=== PATIENT | female | born 1990 | race Caucasian/White ===

== ENCOUNTER 2024-07-25 14:57 | Inpatient (IN) ==
--- NOTE | 2024-07-25 15:11 | Emergency Department Note ---
Impression & Plan Anxiety and depression ED Provider Note Provider: Joseph Yee MD CHIEF COMPLAINT: Anxiety and stress HISTORY OF PRESENT ILLNESS: Patient is a 34-year-old female presenting here today stating she has had a really hard time recently with her mental health and significant anxiety. Having episodes where she is having anxiety attacks and cannot stop crying. Has attempted to see outpatient services but has been able to get in with any to date. Patient denies to me any suicidal thoughts or homicidal thoughts. Since having a discussion with her PhD advisor on Saturday has been having continuous anxiety and crying episodes. Not sleeping much. Racing thoughts. Has had episodes of anxiety and depression in the past several years ago particular when her grandmother . Is on several maintenance antidepressant/anxiety medications but these are not helping. No drug or alcohol issues reported. Has thought of not wanting to be alive but no thoughts of wanting to kill herself or harm her self. No homicidal thoughts or hallucinations reported. Patient has been eating and drinking some but she states she feels somewhat tingly and anxious and is crying a lot and occasionally a bit nauseous. Her and her girlfriend have reached out for outpatient resources but limited effect over the last several days to get appointments or follow-up thus came here. Is trying to get a short-term leave from school. 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 EOMI. NECK: Trachea midline. Supple. ENT: Mucous membranes pink and moist. Little bit of a red and raw nose from crying and clear rhinorrhea. LUNGS: Airway patent. No retractions. Breath sounds clear with good air entry bilaterally. HEART: Regular rate and rhythm. No chest wall tenderness ABDOMEN: Soft and non-tender, without guarding or rebound. SKIN: Acyanotic, warm, dry, without rashes EXTREMITIES: Without swelling, tenderness or deformity NEUROLOGICAL: No focal deficits moving all extremities. No aphasia. No facial droop or slurred speech. Ambulatory. Psych: Anxious and crying actively. Not responding to external stimuli. Reports severe anxiety as well as mild depression but no suicidal ideation. Reports hopelessness. No HI reported. Patient's laboratory studies and imaging reviewed. Differential includes Mood disorder, infection, hypoglycemia, electrolyte abnormalities, cardiac sources, intracerebral event, toxicologic, trauma, neurologic, as well as other pathologies. IMPRESSION/MEDICAL DECISION MAKING: Patient is quite anxious and tearful and crying. Has been under additional school stress recently. No drug or alcohol issues. Crying and tearful racing thoughts but no suicidal attempts or homicidal ideation although is hopeless and has had some thoughts of not wanting to be alive. Will give a bit of Ativan to help with symptoms. Seen with case management here. Basic blood work obtained. Is on some outpatient antidepressant/anxiety medications but has not had a current therapist or counselor. No inpatient mental health history reported. Her and her girlfriend are here to try to seek help and help her control her anxiety and depression so she can be functional. Blood work here without significant anemia or leukocytosis. No significant electrolyte abnormality, renal dysfunction, or signs of thyroid dysfunction at this time. UDS consistent with her antidepressant/anxiety medication usage with otherwise negative toxicology study. Case management formal evaluation discussed the patient options. No involuntary criteria but discussed options if she wanted referral to [facility] or possible inpatient treatment given the severity of her symptoms. Evaluated by [facility] for possible inpatient voluntary treatment and care. Accepted there on a 201 for further care. DIAGNOSIS: Anxiety and depression DISPOSITION: To [facility] for further inpatient psychiatric care. Past Med/Surg History Problem List (Updated 07/25/24 @ 18:19 by Joseph Yee M.D.) Anxiety and depression (Acute) Social History Smoking Status: Never smoker Feels Safe at Home: Yes Gender Identity: Female Allergies Allergies Allergy/AdvReac Type Severity Reaction Status Date / Time cinnamon Allergy Unknown Verified 07/25/24 15:34 NSAIDS (Non-Steroidal Allergy Unknown Verified 07/25/24 15:34 Anti-Inflamma Results & Data (ED) Vital Signs Vital Signs - 24 hr 07/25/24 15:04 07/25/24 18:59 Temperature 36.4 C L Temperature Source Temporal Artery Scan Pulse Rate 111 H 88 Respiratory Rate 18 18 Respiratory Effort / Characteristics Non-Labored Spontaneous Respiratory Depth Normal Respiratory Pattern Regular Blood Pressure 136/87 128/79 Blood Pressure Mean 103 Pulse Oximetry 100 97 Oxygen Delivery Method Room Air Room Air Sepsis Recent Fever Within 48 Hours No Sepsis New/Unexplained Change in Mental Status N/A Sepsis Action Taken by Nursing No Action Required Laboratory Data 07/25/24 15:47 07/25/24 15:47 Lab Results 07/25/24 07/25/24 07/25/24 Range/Units 15:30 15:39 15:47 WBC 7.63 (4.8-10.8) K/ul RBC 4.58 (4.20-5.40) M/uL Hgb 13.7 (12.0-16.0) g/dl Hct 40.2 (37.0-47.0) % MCV 87.8 (80.0-100.0) fL MCH 29.9 (25.0-34.0) pg MCHC 34.1 (32.0-36.0) g/dL RDW Std Deviation 39.0 (36.4-46.3) fL RDW Coeff of Michi 12.1 (11.5-14.5) % Plt Count 484 H (130-400) K/uL MPV 9.5 (9.4-12.4) fL Immature Gran % (Auto) 0.4 % Neut % (Auto) 59.0 % Lymph % (Auto) 30.5 % [place] % (Auto) 8.4 % Eos % (Auto) 1.0 % Baso % (Auto) 0.7 % Neut # (Auto) 4.50 (1.40-6.50) K/uL Lymph # (Auto) 2.33 (1.20-3.40) K/uL [place] # (Auto) 0.64 H (0.11-0.59) K/uL Eos # (Auto) 0.08 (0.00-0.50) K/uL Baso # (Auto) 0.05 (0.00-0.20) K/uL Immature Gran # (Auto) 0.03 (0.01-0.20) K/uL Sodium 136 (136-145) mmol/L Potassium 4.0 (3.5-5.1) mmol/L Chloride 104 (98-107) mmol/L Carbon Dioxide 23 (21-32) mmol/L Anion Gap 9 (3-11) BUN 11 (6-23) mg/dl Creatinine 0.87 (0.6-1.2) mg/dl Est Cr Clr Drug Dosing 101.8 ml/min eGFR 90.73 BUN/Creatinine Ratio 12.6 (10-20) Glucose 89 (70-99(Fasting)) mg/dl Calcium 9.3 (8.6-10.3) mg/dl Total Bilirubin 0.4 (0.2-1.0) mg/dl AST 20 (13-39) U/L ALT 17 (7-52) U/L Alkaline Phosphatase 60 (34-104) U/L Total Protein 7.8 (6.0-8.3) gm/dl Albumin 4.7 (3.4-5.0) gm/dl Globulin 3.1 (2.5-4.0) gm/dl Albumin/Globulin Ratio 1.5 (0.9-2) TSH 1.576 (0.300-4.500) uIu/ml HCG, Qual Negative (Negative) Urine Color Yellow Urine Appearance Cloudy A (Clear) Urine pH 5.0 (4.5-7.5) Ur Specific [place] 1.023 (1.000-1.030) Urine Protein Negative (Negative) Urine Glucose (UA) Negative (Negative) Urine Ketones 1+ H (Negative) Urine Blood 2+ H (Negative) Urine Nitrite Negative (Negative) Urine Bilirubin Negative (Negative) Urine Urobilinogen Negative (Negative) Ur Leukocyte Esterase Negative (Negative) Urine WBC (Auto) 6-10 H (0-5) /hpf Urine RBC (Auto) 6-10 H (0-2) /hpf U Hyaline Cast (Auto) 0-2 (0-2) /lpf U Epithel Cells (Auto) 3-5 H (0-2) /hpf Urine Bacteria (Auto) 3+ H (None Seen) Salicylates < 3.0 L (3.0-30) mg/dl Urine Opiates Screen Neg (Neg) Ur Methadone, Qual Neg (Neg) Urine Fentanyl Screen Neg (Neg) Acetaminophen < 3 L (10-30) ug/ml Urine Barbiturates Neg (Neg) Ur Phencyclidine (PCP) Neg (Neg) U Amphetamin/Meth Scrn Neg (Neg) MDMA (Ecstasy) Screen Pos H (Neg) U Benzodiazepines Scrn Neg (Neg) Ur Cocaine Metabolite Neg (Neg) U Marijuana (THC) Screen Neg (Neg) Ethyl Alcohol mg/dL < 10.0 (<10.0) mg/dl SARS-CoV-2, RNA, NAAT NEGATIVE (NEGATIVE) Administered Medications Discontinued Medications Lorazepam (Lorazepam 1 Mg Tab) 1 mg SL NOW STA Stop: 07/25/24 15:20 Last Admin: 07/25/24 15:38 Dose: 1 mg Documented By: ARS Discharge Plan Visit Data Chief Complaint: Mental Health Evaluation Stated Complaint: SEVERE MENTAL DISTRESS & RECOMMENDATION ED Provider: Joseph Yee Discharge Problem: Anxiety and depression Patient Disposition: Admitted As Inpatient Discharge Instructions Interventions: ED Discharge Assessment Last Done: 07/25/24 18:59
[2024-07-25] MEDS: LORazepam 1 MG TAB SL STA (15:38)
[2024-07-25 16:03] LABS: Appearance Urine Cloudy (Clear); Bacteria Urine Automated 3+ (None Seen); Bilirubin Urine Negative (Negative); Blood Urine 2+ (Negative); Cast Urine Automated 0-2 /lpf (0-2); Color Urine Yellow; Glucose Urine UA Negative (Negative); Ketones Urine 1+ (Negative); Leukocyte Esterase Urine Negative (Negative); Nitrite Urine Negative (Negative); Protein Urine Negative (Negative); Specific Gravity Urine 1.023 (1.000-1.030); Urobilinogen Urine Negative (Negative)
[2024-07-25 16:10] LABS: Basophils # (auto) 0.05 K/uL (0.00-0.20); Basophils % (auto) 0.7 %; Eosinophils # (auto) 0.08 K/uL (0.00-0.50); Hematocrit (blood only) 40.2 % (37.0-47.0); Hemoglobin 13.7 g/dl (12.0-16.0); Immature Granulocytes # (auto) 0.03 K/uL (0.01-0.20); Immature Granulocytes % (auto) 0.4 %; Lymphocytes # (auto) 2.33 K/uL (1.20-3.40); Lymphocytes % (auto) 30.5 %; Mean Corpuscular Hemoglobin 29.9 pg (25.0-34.0); Mean Corpuscular Hgb Conc 34.1 g/dL (32.0-36.0); Mean Corpuscular Volume 87.8 fL (80.0-100.0); Mean Platelet Volume 9.5 fL (9.4-12.4); Monocytes # (auto) 0.64 K/uL (0.11-0.59); Monocytes % (auto) 8.4 %; Platelet Count 484 K/uL (130-400); RDW Coefficient of Variation 12.1 % (11.5-14.5); Red Blood Count 4.58 M/uL (4.20-5.40); White Blood Count 7.63 K/ul (4.8-10.8)
[2024-07-25 16:25] LABS: Pregnancy Test, Serum Negative (Negative)
[2024-07-25 16:28] LABS: Albumin Globulin Ratio 1.5 (0.9-2); Albumin Level 4.7 gm/dl (3.4-5.0); BUN Creatinine Ratio 12.6 (10-20); Bilirubin,Total 0.4 mg/dl (0.2-1.0); Calcium 9.3 mg/dl (8.6-10.3); Creatinine Clr Calc Pharmacy 101.8 ml/min; Globulin 3.1 gm/dl (2.5-4.0); Total Protein 7.8 gm/dl (6.0-8.3)
[2024-07-25 16:37] LABS: Amphetamines+Metham, Urine Neg (Neg); Barbiturates, Urine Neg (Neg); Benzodiazepine, Urine Neg (Neg); Cocaine, Urine Neg (Neg); Fentanyl, Urine Neg (Neg); MDMA (Ecstacy), Urine Pos (Neg); Marijuana, Urine Neg (Neg); Methadone, Urine Neg (Neg); Opiate, Urine Neg (Neg); Phencyclidine, Urine Neg (Neg)
[2024-07-25 16:37] LABS: Acetaminophen < 3 ug/ml (10-30); Salicylate < 3.0 mg/dl (3.0-30)
[2024-07-25 16:44] LABS: Thyroid Stimulating Hormone 1.576 uIu/ml (0.300-4.500)
[2024-07-25] MEDS ORDERED: hydrOXYzine HCl 25 MG TAB PO PRN (19:15)
[2024-07-25] MEDS ORDERED: SODIUM CHLORIDE 0.65% NA SOLN 45 ML (OCEAN) PRN (19:15)
[2024-07-25] MEDS ORDERED: ALUMINUM/MAGNESIUM SUSP 30 ML UDC PO PRN (19:15)
[2024-07-25] MEDS ORDERED: ACETAMINOPHEN 325 MG TAB PO PRN (19:15)
[2024-07-26] MEDS: VENLAFAXINE HCL XR 75 MG CAPXR PO SCH (09:01)
[2024-07-26] MEDS: buPROPion XL 300 MG TABCR PO SCH (09:02)
[2024-07-26] MEDS: LORazepam 0.5 MG TAB PO PRN (10:13)
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
[2024-07-26] MEDS: PROPRANOLOL HCL 10 MG TAB PO SCH (15:32)
[2024-07-26] MEDS: hydrOXYzine HCl 25 MG TAB PO PRN (21:46)
[2024-07-27 08:58] LABS: Estimated Average Glucose 100 mg/dl; Hemoglobin A1C 5.1 % (4.5-5.6)
[2024-07-27 09:13] LABS: Chol HDL Ratio 3.1 (0-5)
[2024-07-27] MEDS: VENLAFAXINE HCL XR 150 MG CAPXR PO SCH (09:26)
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
[2024-07-28] MEDS: CHOLECALCIFEROL 125 MCG (5,000 UNITS) TAB PO SCH (09:11)
--- NOTE | 2024-07-28 12:30 | Psychiatric Progress Note ---
Date of Service July 28, 2024 Impression / Recommendations Impression LORI APPLE is a 34-year-old F who currently lives with roommate, has a history of depression, anxiety, ADH, and was admitted on 07/25/24 19:15 on a 201 voluntary commitment for suicidal ideation. Presentation consistent with MDD, recurrent, moderate-severe and MABEL. Patient presents h/o recurrent depression with limited medication changes and worsening symptoms in the context of academic/roommate stressors and social isolation. Presents generalized worries regarding fear of failure and inadequacy. Presenting passive suicidal ideations and poor self esteem. A: Continues to present difficulties with sleep maintenance. Presents improved mood and outlook. Continues to ruminate about future worries and negative judgments about self. Was counseled about cognitive behavioral therapy and benefits. Reports a history of performance anxiety with physical symptoms of palpitations and tension. Labs reviewed: B12, hemoglobin A1c, lipid panel unremarkable and vitamin D insufficient at 20.5. We will optimize sleep regimen and start vitamin supplementation. Patient educated about sleep hygiene. Social work to refer to intensive outpatient program. Overall, I spent a total of 45 minutes with this case including review of chart records, nursing report, review of lab work, direct evaluation of the patient at bedside, counseling the patient, multidisciplinary team meeting, orders, and documentation in the electronic health record. (1) MDD (major depressive disorder), recurrent episode, moderate: (2) Generalized anxiety disorder: (3) Difficulty concentrating: (4) Other social stressor: (5) Has difficulties with academic performance: (6) Vitamin D insufficiency: Plan 07/28/2024: Start vitamin D 125 mcg daily Schedule lorazepam 0.5 mg at bedtime and discontinue as needed lorazepam 07/27/2024: Continue medications and treatment plan 07/26/24: The patient was admitted to the [facility] ([facility] mental health unit) on q15 min checks (behavioral with suicide precautions) for safety. The patient will participate in group, recreational, and milieu therapies and will be offered additional individual and family sessions as clinically appropriate. -Start Propranolol 10mg TID -Increase home Effexor XR to 150mg QD -Continue home Bupropion XR 300mg QD -Lorazepam 0.5mg BID PRN for anxiety, Hydroxyzine PRN for breakthrough anxiety Inventory Assets Strengths: independent, support seeking Needs: improved self esteem, assertiveness Suicide Risk Level Suicide Risk Level: Moderate (q15 min suicide checks) Risk Factors Assessment Male: No : Yes Do You Have Access To A Gun?: No (n/a) Health Problems: No Mental Health Diagnoses: Yes Substance Use Disorders: No Previous Attempt: No Family History of Suicide: No Previous Psychiatric Hospitalization: No Hopelessness: Yes Protective Factors Assessment Church Beliefs: No : No Responsible for Young Children: No Employed: No Stable Relationships: Yes Supportive Family: Yes Good Rapport with Provider: Yes Absence of Any Risk Factors Above: No Interval History Identifying Information LORI APPLE is a 34-year-old F who currently lives with roommate, has a history of depression, anxiety, ADH, and was admitted on 07/25/24 19:15 on a 201 volun tary commitment for suicidal ideation. Chief Complaint Depression Review of Systems Sleep Information Total Hours of Sleep: 7 Meal Information Percent Meal Consumed - Breakfast: 100 Percent Meal Consumed - Lunch: 100 Percent Meal Consumed - Dinner: 90 Subjective Subjective Patient was seen & assessed and interval progress reviewed with treatment team nursing and social work Patient reported poor sleep overnight. Said she took a nap yesterday afternoon. Multiple awakenings throughout the night. Denies having crying spells or physical anxiety. Complains of racing thoughts involving future worries and this often leads to judgments about herself. Endorses poor concentration having difficulty in conversations and reading. Reports having regular performance anxiety in the community. Denies active suicidal ideation however endorses passive thoughts. No other concerns mentioned. Physical Exam Mental Examination Appearance: Well Groomed Eye Contact: Maintains Eye Contact Motor Behavior: Unremarkable Speech: Soft Mood: Anxious Affect: Constricted Thought Process: Intact and Linear Thought Content: Intact Hallucinations: None Insight: Poor (to limited) Judgement: Fair (to limited) Vital Signs (Past 24 Hours) Last Vital Signs Temp 36.3 C L 07/28/24 06:21 Pulse 67 07/28/24 09:05 Resp 16 07/28/24 06:21 BP 109/78 07/28/24 09:05 Pulse Ox 97 07/27/24 20:06 O2 Del Method Room Air 07/27/24 20:06 Results & Data ([facility]) Current Inpatient Medications Current Inpatient Medications: Current Inpatient Medications Acetaminophen (Acetaminophen 325 Mg Tab) 650 mg PO Q4H PRN PRN Reason: Headache or Minor Fever Stop: 08/24/24 19:14 Al Hydrox/Mg Hydrox/Simethicone (Aluminum/Magnesium Susp 30 Ml Udc) 30 ml PO Q4H PRN PRN Reason: GI Upset Stop: 08/24/24 19:14 Bupropion HCl (Bupropion Xl 300 Mg Tabcr) 300 mg PO QAM RADHA Stop: 08/25/24 08:59 Last Admin: 07/28/24 09:11 Dose: 300 mg Hydroxyzine HCl (Hydroxyzine Hcl 25 Mg Tab) 50 mg PO HSZ PRN PRN Reason: Insomnia Stop: 08/24/24 19:14 Last Admin: 07/27/24 21:13 Dose: 50 mg Hydroxyzine HCl (Hydroxyzine Hcl 25 Mg Tab) 25 mg PO Q4H PRN PRN Reason: Anxiety Stop: 08/24/24 19:14 Lorazepam (Lorazepam 0.5 Mg Tab) 0.5 mg PO HS RADHA Stop: 08/27/24 21:59 Magnesium Hydroxide (Magnesium Hydroxide Susp 30 Ml Udc) 30 ml PO DAILY PRN PRN Reason: Constipation Stop: 08/24/24 19:14 Propranolol HCl (Propranolol Hcl 10 Mg Tab) 10 mg PO TID RADHA Stop: 08/25/24 15:14 Last Admin: 07/28/24 09:12 Dose: 10 mg Sodium Chloride (Sodium Chloride 0.65% Na Soln 45 Ml ([place])) 1 - 2 sprays NA PRN PRN PRN Reason: Nasal Dryness/Congestion Stop: 08/24/24 19:14 Venlafaxine HCl (Venlafaxine Hcl Xr 150 Mg Capxr) 150 mg PO QAM RADHA Stop: 08/26/24 08:59 Last Admin: 07/28/24 09:12 Dose: 150 mg Vitamin D (Cholecalciferol 125 Mcg (5,000 Units) Tab) 125 mcg PO QAM RADHA Stop: 08/27/24 08:59 Last Admin: 07/28/24 09:11 Dose: 125 mcg Mental Health & Subst Abuse Tx Psychiatrist Time of Appointment with Psychiatrist: n/a Therapist Name of Therapist: [employer] Therapist's Phone Number: Time of Therapist Appointment: n/a Anesthesiology Resident Name of Anesthesiology Resident: n/a Time of Appointment with Anesthesiology Resident: n/a Post Discharge Appointments Primary Care Physician Name Of Family Doctor/PCP: Amanda Bradley PA-C at [facility] Time of Appointment with PCP: n/a Contact Information Discharge Discharge Address: [address] [place] [address] [place] Pined[place] [id number]
[2024-07-28] MEDS: LORazepam 0.5 MG TAB PO SCH (21:18)
[2024-07-29] MEDS ORDERED: PROPRANOLOL HCL 10 MG TAB PO PRN (11:10)
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
[2024-07-29] MEDS: MAGNESIUM HYDROXIDE SUSP 30 ML UDC PO PRN (19:17)
--- NOTE | 2024-07-30 10:58 | Psychiatric Progress Note ---
Date of Service July 30, 2024 Impression / Recommendations Impression LORI APPLE is a 34-year-old F who currently lives with roommate, has a history of depression, anxiety, ADH, and was admitted on 07/25/24 19:15 on a 201 voluntary commitment for suicidal ideation. Presentation consistent with MDD, recurrent, moderate-severe and MABEL. Patient presents h/o recurrent depression with limited medication changes and worsening symptoms in the context of academic/roommate stressors and social isolation. Presents generalized worries regarding fear of failure and inadequacy. Presenting passive suicidal ideations and poor self esteem. A: Patient presents an improved mood with a brighter affect and more reactivity. She presents denial of suicidal ideation and is future oriented. Continues to have sleep maintenance dysfunction. She was counseled about medications and potential future changes. No acute safety concerns presented. No breakthrough anxiety after discontinuation of propranolol. Overall, I spent a total of 35 minutes with this case including review of chart records, nursing report, review of lab work, direct evaluation of the patient at bedside, counseling the patient, multidisciplinary team meeting, orders, and documentation in the electronic health record. (1) MDD (major depressive disorder), recurrent episode, moderate: (2) Generalized anxiety disorder: (3) Difficulty concentrating: (4) Other social stressor: (5) Has difficulties with academic performance: (6) Vitamin D insufficiency: Plan 07/30/2024: Continue medications and treatment plan 07/29/2024: Propranolol to 3 times daily NEEDED 07/28/2024: Start vitamin D 125 mcg daily Schedule lorazepam 0.5 mg at bedtime and discontinue as needed lorazepam 07/27/2024: Continue medications and treatment plan 07/26/24: The patient was admitted to the [facility] ([facility]) on q15 min checks (behavioral with suicide precautions) for safety. The patient will participate in group, recreational, and milieu therapies and will be offered additional individual and family sessions as clinically appropriate. -Start Propranolol 10mg TID -Increase home Effexor XR to 150mg QD -Continue home Bupropion XR 300mg QD -Lorazepam 0.5mg BID PRN for anxiety, Hydroxyzine PRN for breakthrough anxiety Inventory Assets Strengths: independent, support seeking Needs: improved self esteem, assertiveness Suicide Risk Level Suicide Risk Level: Moderate (q15 min suicide checks) Risk Factors Assessment Male: No : Yes Do You Have Access To A Gun?: No (n/a) Health Problems: No Mental Health Diagnoses: Yes Substance Use Disorders: No Previous Attempt: No Family History of Suicide: No Previous Psychiatric Hospitalization: No Hopelessness: Yes Protective Factors Assessment Mormonism Beliefs: No : No Responsible for Young Children: No Employed: No Stable Relationships: Yes Supportive Family: Yes Good Rapport with Provider: Yes Absence of Any Risk Factors Above: No Interval History Identifying Information LORI APPLE is a 34-year-old F who currently lives with roommate, has a history of depression, anxiety, ADH, and was admitted on 07/25/24 19:15 on a 201 voluntary commitment for suicidal ideation. Chief Complaint Depression, Anxiety Review of Systems Sleep Information Total Hours of Sleep: 6.5 Meal Information Percent Meal Consumed - Breakfast: 100 Percent Meal Consumed - Lunch: 100 Percent Meal Consumed - Dinner: 70 Subjective Subjective Patient was seen & assessed and interval progress reviewed with treatment team nursing and social work Patient slept 6.5 hours overnight. Reports some awakenings however able to go back to sleep. Took Vistaril as needed and found it effective. She is more reactive and bright today and is excited to see her family this weekend. She denies having physical symptoms of anxiety however reports in the community has diarrhea and constipation in regards to high anxiety. She denies active or passive SI and reports wanting to live for her family and herself. Physical Exam Mental Examination Appearance: Well Groomed Eye Contact: Maintains Eye Contact Motor Behavior: Unremarkable Speech: Soft Mood: Euthymic and Calm Affect: Constricted (more reactive today) Thought Process: Intact and Linear Thought Content: Intact Hallucinations: None Insight: Fair (to limited) Judgement: Fair (to limited) Vital Signs (Past 24 Hours) Last Vital Signs Temp 36.9 C 07/30/24 06:41 Pulse 94 H 07/30/24 06:42 Resp 16 07/30/24 06:41 BP 93/55 L 07/30/24 06:42 Pulse Ox 97 07/27/24 20:06 O2 Del Method Room Air 07/27/24 20:06 Results & Data ([facility]) Current Inpatient Medications Current Inpatient Medications: Current Inpatient Medications Acetaminophen (Acetaminophen 325 Mg Tab) 650 mg PO Q4H PRN PRN Reason: Headache or Minor Fever Stop: 08/24/24 19:14 Al Hydrox/Mg Hydrox/Simethicone (Aluminum/Magnesium Susp 30 Ml Udc) 30 ml PO Q4H PRN PRN Reason: GI Upset Stop: 08/24/24 19:14 Bupropion HCl (Bupropion Xl 300 Mg Tabcr) 300 mg PO QAM RADHA Stop: 08/25/24 08:59 Last Admin: 07/30/24 09:02 Dose: 300 mg Hydroxyzine HCl (Hydroxyzine Hcl 25 Mg Tab) 50 mg PO HSZ PRN PRN Reason: Insomnia Stop: 08/24/24 19:14 Last Admin: 07/29/24 21:38 Dose: 50 mg Hydroxyzine HCl (Hydroxyzine Hcl 25 Mg Tab) 25 mg PO Q4H PRN PRN Reason: Anxiety Stop: 08/24/24 19:14 Lorazepam (Lorazepam 0.5 Mg Tab) 0.5 mg PO HS RADHA Stop: 08/27/24 21:59 Last Admin: 07/29/24 21:36 Dose: 0.5 mg Magnesium Hydroxide (Magnesium Hydroxide Susp 30 Ml Udc) 30 ml PO DAILY PRN PRN Reason: Constipation Stop: 08/24/24 19:14 Last Admin: 07/29/24 19:17 Dose: 30 ml Propranolol HCl (Propranolol Hcl 10 Mg Tab) 10 mg PO TID PRN PRN Reason: Palpitations Stop: 08/25/24 15:14 Sodium Chloride (Sodium Chloride 0.65% Na Soln 45 Ml ([place])) 1 - 2 sprays NA PRN PRN PRN Reason: Nasal Dryness/Congestion Stop: 08/24/24 19:14 Venlafaxine HCl (Venlafaxine Hcl Xr 150 Mg Capxr) 150 mg PO QAM RADHA Stop: 08/26/24 08:59 Last Admin: 07/30/24 09:02 Dose: 150 mg Vitamin D (Cholecalciferol 125 Mcg (5,000 Units) Tab) 125 mcg PO QAM RADHA Stop: 08/27/24 08:59 Last Admin: 07/30/24 09:02 Dose: 125 mcg Mental Health & Subst Abuse Tx Psychiatrist Time of Appointment with Psychiatrist: n/a Therapist Name of Therapist: Inventalator Therapist's Phone Number: Date of Therapist Appointment: 08/05/24 Time of Therapist Appointment: 11:00 AM Therapy Appointment Comment: Intake appointment Barrel Bander Name of Barrel Bander: n/a Time of Appointment with Barrel Bander: n/a Post Discharge Appointments Primary Care Physician Name Of Family Doctor/PCP: Amanda Bradley PA-C at [facility] Primary Care Phone Number: [phone] Time of Appointment with PCP: n/a Other #1: Name of Aftercare Appointment: Student Care and Advocacy Date of Aftercare Appointment: 08/04/24 Time of Aftercare Appointment: 10 AM Contact Information Discharge Discharge Address: [facility] [address] [id number]
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
[2024-08-01 00:07] LABS: MDA negative; MDEA negative; MDMA (Ecstasy) Urine, Confirm negative
== END 2024-07-31 11:25 | disposition home or self-care (01) | DRG 885 ==
LOC: ED 14:57 → 3S 18:59